=== PATIENT | male | born 1955 | race Caucasian/White ===

== ENCOUNTER → 2016-10-09 | Outpatient (CLI) | payer BC ==
--- NOTE | 2016-10-09 11:54 | PCVCIMAG ---
EXAM: ULTRASOUND OF THE THYROID INDICATION: Thyroid nodules. FINDINGS: The right thyroid lobe measures 4.1 x 2.2 x 2.5 cm. The left thyroid lobe measures 4.6 x 1.7 x 1.1 cm. There is a 3.2 x 2.2 x 2.2 cm predominantly solid mass in the mid thyroid lobe which contains multiple small cystic spaces. It has not definitely changed in size compared to August 2015 study. No left-sided thyroid nodules. IMPRESSION: 3.2 cm dominant solid mass in the mid right thyroid lobe showing little change since August 2015 study. LOC:[id number]
== END | disposition home or self-care (01) ==
LOC: PCVCIMAG 09:55
PROVIDERS: ATTEND Internal Medicine
DX: E04.1 Nontoxic single thyroid nodule (principal); E78.5 Hyperlipidemia, unspecified; K21.9 Gastro-esophageal reflux disease without esophagitis; M19.90 Unspecified osteoarthritis, unspecified site; I77.89 Other specified disorders of arteries and arterioles; Z82.49 Family history of ischemic heart disease and other diseases of the circulatory system
CPT/HCPCS: 76536; 80061; 93005; G0463

== ENCOUNTER → 2017-11-14 | Outpatient (CLI) | payer BC ==
--- NOTE | 2017-11-14 16:16 | PCVCIMAG ---
APPROVED REPORT Study performed: 11/14/2017 14:47:14 EXAM: Comprehensive 2D, Doppler, and color-flow Echocardiogram Patient Location: Echo lab Status: routine BSA: 2.04 HR: 75 bpmBP: 148/90 mmHg Rhythm: NSR Other Information Study Quality: Good Risk Factors: Cardiac Risk Factors: Hyperlipidemia, FHX of CAD Indications Murmur 2D Dimensions IVSd: 10.46 (7-11mm)LVOT Diam: 22.00 (18-24mm) LVDd: 50.10 mm PWd: 10.31 (7-11mm)Ascending Ao: 36.07 (22-36mm) LVDs: 39.41 (25-40mm) Left Atrium: 32.44 (27-40mm) Aortic Root: 31.40 mm LV Single Plane 4CH: 51.75 % LV Single Plane 2CH: 55.44 % Biplane EF: 55.5 % Volumes Left Atrial Volume (Systole) Single Plane 4CH: 56.73 mLSingle Plane 2CH: 44.23 mL LA ESV Index: 26.00 mL/m2 Aortic Valve AoV Peak Harley.: 1.28 m/s AO Peak Gr.: 6.57 mmHgLVOT Max P.44 mmHg LVOT Max V: 0.93 m/s MARISLO Vmax: 2.76 cm2 Mitral Valve E/A Ratio: 1.2 MV Decel. Time: 163.38 ms MV E Max Harley.: 0.98 m/s MV A Harley.: 0.83 m/s IVRT: 62.28 ms TDI E/Lateral E': 8.91E/Medial E': 10.89 Medial E' Harley.: 0.09 m/s Lateral E' Harley.: 0.11 m/s Pulmonary Valve PV Peak Harley.: 0.89 m/sPV Peak Gr.: 3.18 mmHg Pulmonary Vein P Vein S: 0.73 m/sP Vein A: 0.31 m/s P Vein D: 0.53 m/sP Vein A Dur.: 107.3 msec P Vein S/D Ratio: 1.38 Tricuspid Valve TR Peak Harley.: 2.10 m/sRAP Estimate: 7.00 mmHg TR Peak Gr.: 17.56 mmHg PA Pressure: 25.00 mmHg Left Ventricle The left ventricle is normal size. LVSD 3.9cm There is normal LV segmental wall motion. There is normal left ventricular wall thickness. Left ventricular systolic function is normal. The left ventricular ejection fraction is within the normal range. LVEF is 55%. The left ventricular diastolic function is normal. Right Ventricle The right ventricle is normal size. The right ventricular systolic function is normal. Atria The left atrium size is normal. The right atrium size is normal. Aortic Valve The aortic valve is normal in structure. No aortic regurgitation is present. There is no aortic valvular stenosis. Mitral Valve Probable posterior leaflet prolpse Very eccentric, difficult to quantify, moderate to severe mitral regurgitation No evidence of mitral valve stenosis. Tricuspid Valve The tricuspid valve is normal in structure. Trace tricuspid regurgitation. Pulmonary artery pressure is 25 mmHg. Pulmonic Valve The pulmonary valve is normal in structure. Trace pulmonic regurgitation. Great Vessels The aortic root is normal in size. IVC is normal in size and collapses >50% with inspiration. Pericardium There is no pericardial effusion. <Conclusion> Left ventricular systolic function is normal. There is normal LV segmental wall motion. LVEF is 55%. The aortic valve is normal in structure. No aortic regurgitation or stenosis Probable posterior leaflet prolpse. Very eccentric, difficult to quantify, moderate to severe mitral regurgitation Trace tricuspid regurgitation. Pulmonary artery pressure is 25 mmHg. There is no pericardial effusion.
== END | disposition home or self-care (01) ==
LOC: PCVCIMAG 15:45
PROVIDERS: ATTEND Internal Medicine
DX: I05.1 Rheumatic mitral insufficiency (principal); I25.10 Atherosclerotic heart disease of native coronary artery without angina pectoris; R01.1 Cardiac murmur, unspecified
CPT/HCPCS: 93306

== ENCOUNTER → 2017-11-28 | Outpatient (CLI) | payer BC ==
[~2017-11-28] MED LIST: BENZOCAINE ONE 20% MUCOSAL SPRAY.; IV NORMAL SALINE 500ML BAG 500 ML ONE; MIDAZOLAM HCL/PF 2 MG/2 ML VIAL. ONE; fentaNYL PF VIAL 100 MCG/2 ML VIAL ONE
--- NOTE | 2017-11-28 12:57 | PCVCIMAG ---
APPROVED REPORT Study performed: 11/28/2017 09:06:23 EXAM: Transesophageal Echocardiogram Patient Location: [facility] Status: routine BSA: 2.04 HR: 71 bpmBP: 156/78 mmHg Rhythm: NSR Other Information Study Quality: Good Indications Mitral Valve Disease Murmur Procedure After obtaining informed consent, patient underwent transesophageal echo in the [facility] [facility]. Type of Sedation : Conscious Sedation Sedation was administered by Sandhya Yung RN. Sedation was achieved intravenously with: Versed (6 mg) Fentanyl (150mcg) Transesophageal probe was inserted and advanced into esophagus without difficulty by Ger Romero MD. Echo enhancement indication: R/O Septal defect. Echo enhancement agent administered: Agitated Saline The ESPERANZA was performed without complications. Throughout the procedure, the blood pressure, pulse oximetry, cardiac rhythm, and rate were monitored. The patient tolerated the procedure without adverse effects. Recovery from conscious sedation was uneventful and vital signs were stable. Left Ventricle The left ventricle is normal size. There is normal LV segmental wall motion. There is normal left ventricular wall thickness. The left ventricular systolic function is normal. The left ventricular ejection fraction is within the normal range. LVEF is 55%. LVESD 4.3cm Right Ventricle The right ventricle is normal size. The right ventricular systolic function is normal. Atria No thrombus is visualized in the left atrium or appendage. Injection of bubbles documented no interatrial shunt. The right atrium size is normal. Aortic Valve The aortic valve is normal in structure. No aortic regurgitation is present. There is no aortic valvular stenosis. Mitral Valve Posterior leaflet prolapse Severe eccentrically directed mitral regurgitation. Tricuspid Valve The tricuspid valve is normal in structure. There is no tricuspid valve regurgitation noted. Pulmonic Valve The pulmonary valve is normal in structure. There is no pulmonic valvular regurgitation. Great Vessels The aortic root is normal in size. The ascending aorta is normal in size. IVC is normal in size and collapses >50% with inspiration. Pericardium There is no pericardial effusion. <Conclusion> The left ventricular systolic function is normal. There is normal LV segmental wall motion. LVEF is 55%. LVESD 4.3cm No thrombus is visualized in the left atrium or appendage. No shunting by contrast bubble injection The aortic valve is normal in structure. No aortic regurgitation or stenosis Posterior leaflet prolapse. Severe eccentrically directed mitral regurgitation. There is no pericardial effusion.
== END | disposition home or self-care (01) ==
LOC: PCVCINTER 10:26
PROVIDERS: ATTEND Internal Medicine
DX: I34.0 Nonrheumatic mitral (valve) insufficiency (principal); E78.5 Hyperlipidemia, unspecified; Z82.49 Family history of ischemic heart disease and other diseases of the circulatory system
CPT/HCPCS: 93312; 93325; J2250; J3010; J7040

== ENCOUNTER → 2017-12-03 | Outpatient (CLI) | payer BC ==
--- NOTE | 2017-12-03 17:09 | PCVCIMAG ---
APPROVED REPORT Study performed: 12/03/2017 15:43:57 Exam: Stress Echocardiogram Indication: Hyperlipidemia, Murmur, Family History CAD Patient Location: Echo lab Stress Nurse: Mariana Calero RN Status: routine Ht: 6 ft 0 in HR: 70 bpm BP: 140/80 mmHg Rhythm: NSR Medical History Medical History: Hyperlipidemia, Murmur Procedure The patient underwent an Exercise Stress Test using the Dominick Protocol. Blood pressure, heart rate, and EKG were monitored. An Echocardiogram was performed by automation engineering technician in four stages in quad fashion. At peak stress, four selected images were obtained and placed side by side with resting images for comparison. Stress Test Details Stress Test: Exercise stress testing was performed using a Dominick protocol. HR Resting HR: 70 bpmMax Heart Rate (APMHR): 156 bpm Max HR Achieved: 155 bpmTarget HR (85% APMHR): 132 bpm % of APMHR: 99 HR response to stress: Normal HR response to stress BP Resting BP: 140/80 mmHg Max BP: 184/76 mmHg ECG Resting ECG: Sinus Rhythm Stress ECG: Sinus Rhythm ST Change: Normal Maximum ST Deviation: 0 mm Arrhythmia: VPC's Recovery ECG: Sinus Rhythm Recovery ST Change: Normal Recovery ST Deviation: 0 mm Recovery Arrhythmia: None Clinical Reason for Termination: Maximal effort Exercise duration: 12 min 00 sec Highest Stage Achieved: Stage 4: 4.2 mph at 16% grade. Exercise capacity: 13.70 METs Overall Exercise Capacity for Age: Good Angina Score: None Stress ECG Conclusion Clinical: Non-ischemic ECG: Non-ischemic Amin Treadmill Score is 12.0 which is Low risk. Pre-Stress Echo The resting Echocardiogram showed normal left ventricular contractility with an estimated Ejection Fraction of about 55%. Post-Stress Echo The stress Echocardiogram showed normal left ventricular contractility with an estimated Ejection Fraction of about 55-60%. Conclusion Clinical Response: Non-ischemic Exercise Capacity: Superior Stress ECG Response: Non-ischemic Stress Echo Images: Non-ischemic Normal stress echocardiogram with maximal exercise stress. Other Information Study Quality: Good <Conclusion> Normal stress echocardiogram with maximal exercise stress.
== END | disposition home or self-care (01) ==
LOC: PCVCIMAG 15:52
PROVIDERS: ATTEND Internal Medicine
DX: R01.1 Cardiac murmur, unspecified (principal)
CPT/HCPCS: 93325; 93351

== ENCOUNTER → 2018-05-27 | Outpatient (CLI) | payer MEDICARE, BC ==
--- NOTE | 2018-05-28 10:51 | PCVCIMAG ---
APPROVED REPORT Study performed: 05/27/2018 13:12:10 EXAM: Comprehensive 2D, Doppler, and color-flow Echocardiogram Patient Location: Echo lab Room #: 3Status: routine BSA: 2.01 HR: 65 bpmBP: 142/80 mmHg Rhythm: NSR Other Information Study Quality: Good Risk Factors: Cardiac Risk Factors: Hyperlipidemia Indications Mitral Valve Prolapse Murmur 2D Dimensions IVSd: 7.63 (7-11mm)LVOT Diam: 22.00 (18-24mm) LVDd: 57.00 mm PWd: 8.06 (7-11mm)Ascending Ao: 36.90 (22-36mm) LVDs: 42.00 (25-40mm) Left Atrium: 31.57 (27-40mm) Aortic Root: 31.08 mm LV Single Plane 4CH: 58.57 % LV Single Plane 2CH: 56.95 % Biplane EF: 57.1 % Volumes Left Atrial Volume (Systole) Single Plane 4CH: 59.00 mLSingle Plane 2CH: 66.48 mL LA ESV Index: 34.00 mL/m2 Aortic Valve AoV Peak Harley.: 1.47 m/s AO Peak Gr.: 8.68 mmHgLVOT Max P.73 mmHg LVOT Max V: 0.97 m/s MARISOL Vmax: 2.51 cm2 Mitral Valve E/A Ratio: 1.0 MV Decel. Time: 262.02 ms MV E Max Harley.: 0.96 m/s MV A Harley.: 0.96 m/s IVRT: 69.20 ms TDI E/Lateral E': 9.60E/Medial E': 10.67 Medial E' Harley.: 0.09 m/s Lateral E' Harley.: 0.10 m/s Pulmonary Valve PV Peak Harley.: 1.00 m/sPV Peak Gr.: 3.99 mmHg Pulmonary Vein P Vein S: 0.76 m/sP Vein A: 0.30 m/s P Vein D: 0.58 m/sP Vein A Dur.: 96.9 msec P Vein S/D Ratio: 1.31 Tricuspid Valve TR Peak Harley.: 2.38 m/sRAP Estimate: 7.00 mmHg TR Peak Gr.: 22.63 mmHg PA Pressure: 30.00 mmHg Left Ventricle The left ventricle is normal size. There is normal LV segmental wall motion. There is normal left ventricular wall thickness. Left ventricular systolic function is normal. The left ventricular ejection fraction is within the normal range. LVEF 60%. The left ventricular diastolic function is normal. Right Ventricle The right ventricle is normal size. The right ventricular systolic function is normal. Atria The left atrium size is normal. The right atrium size is normal. Aortic Valve The aortic valve is normal in structure. No aortic regurgitation is present. There is no aortic valvular stenosis. Mitral Valve Posterior leaflet prolapse. Eccentric, severe mitral regurgitation No evidence of mitral valve stenosis. Tricuspid Valve The tricuspid valve is normal in structure. Trace to mild tricuspid regurgitation. Pulmonary artery pressure is 30 mmHg. Pulmonic Valve The pulmonary valve is normal in structure. Trace pulmonic regurgitation. Great Vessels The aortic root is normal in size. IVC is normal in size and collapses >50% with inspiration. Pericardium There is no pericardial effusion. <Conclusion> Left ventricular systolic function is normal. There is normal LV segmental wall motion. LVEF 60%. Normal diastolic function. LVES 4.3cm The aortic valve is normal in structure. No aortic regurgitation or stenosis. Posterior leaflet prolapse. Eccentric, severe mitral regurgitation Trace to mild tricuspid regurgitation. Pulmonary artery pressure of 30 mmHg. There is no pericardial effusion.
== END | disposition home or self-care (01) ==
LOC: PCVCIMAG 13:04
PROVIDERS: ATTEND Internal Medicine
DX: I34.0 Nonrheumatic mitral (valve) insufficiency (principal); I10 Essential (primary) hypertension; E78.5 Hyperlipidemia, unspecified; M19.90 Unspecified osteoarthritis, unspecified site; R01.1 Cardiac murmur, unspecified; Z82.49 Family history of ischemic heart disease and other diseases of the circulatory system
CPT/HCPCS: 36415; 80061; 93005; 93306; G0463

== ENCOUNTER → 2018-06-02 | Outpatient (CLI) | payer MEDICARE, BC | END | disposition home or self-care (01) | LOC: PCVCCLINIC 11:10 | PROVIDERS: ATTEND Internal Medicine | DX: I10 Essential (primary) hypertension (principal); E78.5 Hyperlipidemia, unspecified | CPT/HCPCS: 36415 ==

== ENCOUNTER → 2018-09-09 | Outpatient (CLI) | payer MEDICARE, BC | END | disposition home or self-care (01) | LOC: PCVCCLINIC 13:00 | PROVIDERS: ATTEND Internal Medicine | DX: E78.00 Pure hypercholesterolemia, unspecified (principal); I34.0 Nonrheumatic mitral (valve) insufficiency; I10 Essential (primary) hypertension; E78.5 Hyperlipidemia, unspecified; K21.9 Gastro-esophageal reflux disease without esophagitis; Z82.49 Family history of ischemic heart disease and other diseases of the circulatory system; Z98.890 Other specified postprocedural states; Z79.82 Long term (current) use of aspirin | CPT/HCPCS: 93005; G0463 ==

== ENCOUNTER → 2018-12-10 | Outpatient (CLI) | payer MEDICARE, BC ==
--- NOTE | 2018-12-10 10:19 | PCVCIMAG ---
APPROVED REPORT Study performed: 12/10/2018 09:06:02 EXAM: Comprehensive 2D, Doppler, and color-flow Echocardiogram Patient Location: Echo lab Room #: 2Status: routine BSA: 2.04 HR: 79 bpmBP: 144/76 mmHg Rhythm: NSR Other Information Study Quality: Good Indications Mitral Valve Disease Mitral Valve Prolapse MV repair 2D Dimensions IVSd: 6.61 (7-11mm)LVOT Diam: 25.53 (18-24mm) LVDd: 56.30 mm PWd: 9.03 (7-11mm)Ascending Ao: 37.20 (22-36mm) LVDs: 41.73 (25-40mm) Left Atrium: 34.76 (27-40mm) Aortic Root: 32.46 mm LV Single Plane 4CH: 48.95 % LV Single Plane 2CH: 51.39 % Biplane EF: 49.7 % Volumes Left Atrial Volume (Systole) Single Plane 4CH: 45.22 mLSingle Plane 2CH: 71.83 mL Biplane LA Volume: 60.00 mLLA ESV Index: 30.00 mL/m2 Aortic Valve AoV Peak Harley.: 1.14 m/s AO Peak Gr.: 5.21 mmHgLVOT Max P.98 mmHg LVOT Max V: 0.86 m/s MARISOL Vmax: 3.87 cm2 Mitral Valve MV Peak Gr.: 10.23 mmHg MV Mean Gr.: 4.88 mmHgE/A Ratio: 0.9 MV Decel. Time: 137.60 ms MV E Max Harley.: 1.21 m/s MV A Harley.: 1.30 m/s MV Max Harley.: 1.60 m/s MV Mean Harley.: 1.06 m/s MV VTI: 373.52 mm TDI E/Lateral E': 10.08E/Medial E': 17.29 Medial E' Harley.: 0.07 m/s Lateral E' Harley.: 0.12 m/s Pulmonary Valve PV Peak Halrey.: 0.82 m/sPV Peak Gr.: 2.67 mmHg Pulmonary Vein P Vein S: 0.61 m/sP Vein A: 0.26 m/s P Vein D: 0.61 m/sP Vein A Dur.: 86.5 msec P Vein S/D Ratio: 1.00 Tricuspid Valve TR Peak Harley.: 2.08 m/s TR Peak Gr.: 17.23 mmHg TV Vmax: 0.82 m/sPA Pressure: 24.00 mmHg Left Ventricle The left ventricle is normal size. There is normal LV segmental wall motion. There is normal left ventricular wall thickness. Left ventricular systolic function is low normal. LVEF is 50-55%. This study is not technically sufficient to allow evaluation of the LV diastolic function. Right Ventricle The right ventricle is normal size. The right ventricular systolic function is normal. Atria The left atrium size is normal. The right atrium size is normal. Aortic Valve Aortic valve is trileaflet, minimally sclerotic No aortic regurgitation is present. There is no aortic valvular stenosis. Mitral Valve Changes consistent with posterior mitral leaflet repair There is no mitral valve regurgitation noted. No evidence of mitral valve stenosis. Tricuspid Valve The tricuspid valve is normal in structure. Trace tricuspid regurgitation with a PA pressure of 24 mmHg. Pulmonic Valve The pulmonary valve is normal in structure. There is no pulmonic valvular regurgitation. Great Vessels The aortic root is normal in size. The ascending aorta is normal in size. Aortic arch is normal in caliber. IVC is normal in size and collapses >50% with inspiration. Pericardium There is no pericardial effusion. There is no pleural effusion. <Conclusion> Left ventricular systolic function is low normal. There is normal LV segmental wall motion. LVEF is 50-55%. Aortic valve is trileaflet, minimally sclerotic. No aortic regurgitation or stenosis Changes consistent with posterior mitral leaflet repair. No mitral valve regurgitation. Trace tricuspid regurgitation with a pulmonary artery pressure of 24 mmHg. There is no pericardial effusion.
== END | disposition home or self-care (01) ==
LOC: PCVCIMAG 09:37
PROVIDERS: ATTEND Internal Medicine
DX: I10 Essential (primary) hypertension (principal); E78.5 Hyperlipidemia, unspecified; K21.9 Gastro-esophageal reflux disease without esophagitis; M19.90 Unspecified osteoarthritis, unspecified site; Z82.49 Family history of ischemic heart disease and other diseases of the circulatory system; Z98.890 Other specified postprocedural states
CPT/HCPCS: 36415; 80061; 93005; 93306; G0463